=== PATIENT | female | born 1975 | race Hispanic/Latino ===

== ENCOUNTER → 2020-03-13 | Outpatient (CLI) | payer OTHER ==
--- NOTE | 2020-04-02 16:32 | REPMRS ---
Patient History The patient states she has not had a clinical breast exam in over a year. Patient is postmenopausal. Family history of unknown cancer at age 50 or over in paternal grandfather. Digital Woman Screen Mammo: March 13, 2020 - Exam #: [id number] Bilateral CC and MLO view(s) were taken. Technologist: Michelle Fong Technologist Prior study comparison: March 21, 2015, digital bilateral screening mammo, performed at [facility]. FINDINGS: There are scattered fibroglandular densities. The Volpara volumetric breast density category is: B. There is a moderate amount of residual fibroglandular tissue which is fairly symmetric. There is no interval development of dominant mass, architectural distortion, or grouped microcalcification typical of malignancy. There has been no change in the appearance of the mammogram from the prior studies. 3-D tomosynthesis shows no additional findings. Report was delayed due to a protracted computer network disruption experienced by this facility. Assessment: BI-RADS/ACR category 1 mammogram. Negative Mammogram. Recommendation Routine screening mammogram of both breasts in 1 year (for women over age 40). This patient's Lifetime Breast Cancer RIsk is estimated at 8.3 %. This mammogram was interpreted with the aid of an FDA-approved computer-aided dectection system. Electronically Signed By: Marcelino Ortiz MD 04/02/20 [id number]
== END ==
LOC: M WHC 12:26
PROVIDERS: ATTEND Nurse Practitioner Primary Care
DX: Z12.31 Encounter for screening mammogram for malignant neoplasm of breast (principal); Z78.0 Asymptomatic menopausal state

== ENCOUNTER → 2020-12-24 | Outpatient (CLI) | payer OTHER ==
--- NOTE | 2020-12-24 15:27 | REP ---
INDICATION: PELVIC/PERINEAL PAIN. COMPARISON: None. TECHNIQUE: Real-time sonographic evaluation of the kidneys is performed. FINDINGS: Renal cortical echogenicity pattern is normal bilaterally and contours are smooth. There is no evidence of hydronephrosis, cyst, mass, or calculus in either kidney. The right kidney measures 11.2 x 5.4 x 4.9 cm. Left renal dimensions are 11.5 x 5.2 x 5.0 cm. Urinary bladder is mildly distended. Ureteral jets could not be visualized with Doppler color evaluation. There appears to be a calculus within the bladder 2.6 x 2.5 x 1.7 cm. IMPRESSION: No hydronephrosis or renal calculus. Bladder calculus has a maximum diameter of 2.6 cm. <Electronically signed by Mahin Petersen > 12/24/20 1521
== END ==
LOC: M RAD 11:55
PROVIDERS: ATTEND Specialist
DX: N21.0 Calculus in bladder (principal); R10.2 Pelvic and perineal pain

== ENCOUNTER → 2021-06-18 | Outpatient (CLI) | payer OTHER ==
--- NOTE | 2021-06-18 10:30 | REPMRS ---
Patient History The patient states she has not had a clinical breast exam in over a year. Patient is postmenopausal. Family history of unknown cancer at age 50 or over in paternal grandfather, colorectal cancer at age 60 in maternal aunt. Tomosynthesis is performed. Volpara breast density is b. [facility] lifetime risk of breast cancer 8.2%. Patient states no breast complaints today. Patient has signed MRS History Sheet. Digital Woman Screen Mammo: June 18, 2021 - Exam #: [id number] Bilateral CC and MLO view(s) were taken. Technologist: Zuri De La Cruz, Technologist Prior study comparison: March 13, 2020, bilateral digital woman screen mammo performed at [facility] and [facility]. March 21, 2015, digital bilateral screening mammo, performed at [facility]. FINDINGS: The breast tissue is heterogeneously dense. This may lower the sensitivity of mammography. There has been no change in the appearance of the mammogram from the prior studies. There is a moderate amount of residual fibroglandular tissue which is fairly symmetric. There is no interval development of dominant mass, areas of architectural distortion, or clustered microcalcification typical of malignancy. Assessment: BI-RADS/ACR category 1 mammogram. Negative Mammogram. Recommendation Routine screening mammogram in 1 year (for women over age 40). This mammogram was interpreted with the aid of an FDA-approved computer-aided dectection system. Electronically Signed By: Mahin Petersen MD 06/18/21 [id number]
== END ==
LOC: M WHC 08:20
PROVIDERS: ATTEND Student in an Organized Health Care Education/Training Program
DX: Z12.31 Encounter for screening mammogram for malignant neoplasm of breast (principal); Z80.0 Family history of malignant neoplasm of digestive organs